=== PATIENT | female | born 1985 | race Caucasian/White ===

== ENCOUNTER 2018-05-27 21:22 | Emergency (ER) | payer MEDICAID, SELFPAY ==
[2018-05-27 21:23] VITALS: BP 115/83; PULSE 95; RESP 16; TEMP 36.8; O2SAT 98; BMI 30.7
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
--- NOTE | 2018-05-27 23:18 | ED.DEP ---
ED Disposition - Plan for ED Patient: Chief Complaint: Back Instructions: ED Contusion Back, ED Contusion Chest Wall Prescriptions: Hydrocodone Bitart/Apap 5-325 [[place] 5MG-325MG] 1 tab PO Q4H PRN PRN 2 Days #10 tab PRN Reason: Pain Naproxen [Naprosyn] 500 mg PO BID PRN #20 tab Referrals: Care Physician,No Primary [Primary Care Provider] - Additional Instructions: See your primary care physician in 5-7 days
--- NOTE | 2018-05-27 23:21 | DCINST.ED_ITS ---
ED Disposition - Plan for ED Patient: Chief Complaint: Back Instructions: ED Contusion Back, ED Contusion Chest Wall Prescriptions: Hydrocodone Bitart/Apap 5-325 [[place] 5MG-325MG] 1 tab PO Q4H PRN PRN 2 Days #10 tab PRN Reason: Pain Naproxen [Naprosyn] 500 mg PO BID PRN #20 tab Referrals: Care Physician,No Primary [Primary Care Provider] - Additional Instructions: See your primary care physician in 5-7 days
[2018-05-27] MEDS: HYDROcodone Bitartrate/Apap 5/325 Tablet PO (23:41)
[2018-05-27 23:45] VITALS: PULSE 86; RESP 16; O2SAT 98
== END 2018-05-27 23:46 | disposition home or self-care (01) ==
LOC: ED 22:35
PROVIDERS: Emergency Provider Emergency Medicine
DX: S20.212A Contusion of left front wall of thorax, initial encounter (principal); S30.0XXA Contusion of lower back and pelvis, initial encounter; Y09 Assault by unspecified means; Y93.9 Activity, unspecified; Y92.9 Unspecified place or not applicable; Z72.0 Tobacco use
CPT/HCPCS: 71101; 72100; 90471; 99284

== ENCOUNTER 2019-06-08 15:28 | Emergency (ER) | payer MEDICAID, SELFPAY ==
[2019-06-08 15:30] VITALS: BP 147/71; PULSE 92; RESP 16; TEMP 36.8; O2SAT 93; BMI 31.1
--- NOTE | 2019-06-08 15:49 | RAD_ITS ---
STUDY: X-RAY - RIGHT FOOT CLINICAL: Female, 34 years old. NEAR FALL, LATERAL FOOT PAIN TECHNIQUE: 3 view(s) of the foot. COMPARISON: None. FINDINGS: Normal talus, calcaneus, and tarsal bones. Normal visualized subtalar, talonavicular, calcaneocuboid, tarsal and tarsometatarsal articulations. Normal metatarsi. Normal visualized joints. No acute fracture is seen. The soft tissue structures are unremarkable. RAD/Foot min 3 Views IMPRESSION: Normal x-ray examination of the foot. Electronically Signed: Maurice Villegas MD at 16:24 EST , Service support ,
[2019-06-08] MEDS: Ibuprofen 600 MG Tablet PO (15:51)
--- NOTE | 2019-06-08 15:53 | ED.VISSUMM ---
- ER Visit Summary Date of Service: 06/08/19 Chief Complaint: Right lower lateral foot pain History of Present Illness: The patient is a 34 F past medical history of depression anxiety and prior . Patient states she is walking today slipped and inverted her right foot complaining of pain on the lateral side of her right small toe metatarsal. No prior history. No prior surgery. She denies any ankle pain or other injuries or discomfort. Physical Examination: Young female no acute distress. Vital signs are stable and afebrile. HEENT exam unremarkable. Neck nontender. Lungs clear to auscultation bilaterally. Heart regular rate and rhythm no murmur. Abdomen soft nontender. Pelvic girdle intact. Both upper extremities left lower extremity unremarkable, nontender, with full range of motion, motor strength and sensation. Right hip and right knee and right ankle are nontender nonswollen with normal range of motion. The right foot lateral metatarsal is tender to palpation. Otherwise foot is neurovascular intact. No deformity. Skin is intact. Able to dorsi plantarflex. Achilles tendon is intact. Normal touch sensation and cap refill of her toes. Test Results: Right foot x-ray 3 views read by myself shows no acute abnormality. No fracture nor dislocation. I did go over the films with the patient. Emergency Department Course and Treatment: Patient most likely has a foot sprain versus a fracture. X-ray is being obtained. Treated with p.o. Motrin. Treatment Plan: Ice and elevate. Increase activity as tolerated. She already has crutches at home. Follow-up with your doctor if not improving or return if worse. Needs to be reevaluated if not improving. Disposition: Discharged Impression: Near [place] with acute right foot sprain This note was generated with [employer] dictation software. It may contain incorrect words, spelling, and punctuation that were not noted in review of the chart prior to signing ED Disposition - Plan for ED Patient: Referrals: Care Physician,No Primary [Primary Care Provider] -
--- NOTE | 2019-06-08 16:17 | ED.DEP ---
ED Disposition - Plan for ED Patient: Disposition: Home or Assisted Living Instructions: Sprain Foot Referrals: Care Physician,No Primary [Primary Care Provider] - 10-14 Days if not better Additional Instructions: Ice and elevate your foot to decrease pain and swelling. Motrin for pain and swelling and Tylenol for pain. Use your crutches that you have at home. Increase weightbearing as tolerated. If this is not improving in 1 to 2 weeks have it reevaluated or potentially even re-x-rayed.
== END 2019-06-08 16:24 | disposition home or self-care (01) ==
PROVIDERS: Emergency Provider Emergency Medicine
DX: S93.601A Unspecified sprain of right foot, initial encounter (principal); W18.40XA Slipping, tripping and stumbling without falling, unspecified, initial encounter; Y93.01 Activity, walking, marching and hiking; Y92.9 Unspecified place or not applicable; F32.9 Major depressive disorder, single episode, unspecified; F41.9 Anxiety disorder, unspecified; Z79.899 Other long term (current) drug therapy
CPT/HCPCS: 73630; 99283

== ENCOUNTER 2021-02-18 12:27 | Emergency (ER) | payer MEDICAID, SELFPAY ==
[2021-02-18 12:29] VITALS: BP 116/85; PULSE 75; RESP 17; TEMP 36.7; O2SAT 96; BMI 31.1
--- NOTE | 2021-02-18 13:22 | EX.ED.DYSGE1 ---
HPI History of Present Illness Chief Complaint: Bite Informant: patient Onset/Context/Timing Onset: Days Narrative Narrative: Patient presents with 2 complaints. She had an insect bite on her left forearm 4 days ago. She is been using hydrocortisone cream on it but states it seems to be more swollen and red. She then developed nausea and abdominal cramping last night. She does not believe it is related to the bite. No fever or chills. No cough. No urinary symptoms. PFSH PFSH Medical History Anxiety Depression Smoker Home Medications acyclovir 400 mg PO DAILY 05/27/18 [History Last Taken Unknown] fluoxetine [Prozac] 20 mg PO DAILY 05/27/18 [History Last Taken Unknown] lorazepam 0.5 mg PO BID PRN 05/27/18 [History Last Taken Unknown] sulfamethoxazole-trimethoprim [Bactrim] 1 tab PO BID #6 tab 02/18/21 [Rx Last Taken Unknown] Allergy/AdvReac Type Severity Reaction Status Date / Time adhesive AdvReac Hives Verified 02/18/21 12:43 benzoyl peroxide AdvReac Rash Verified 02/18/21 12:43 Surgical History Hx of section Social History Smoking Status: Light Smoker (<10/day) ROS ROS ED Constitutional Constitutional ED: Denies chills or fever(s) Eyes Eyes: Denies change in vision ENT ENT ED: Denies sore throat Cardiovascular Cardiovascular: Denies chest pain Respiratory/Chest Respiratory/Chest: Denies cough or dyspnea Gastrointestinal Gastrointestinal: Reports abdominal pain, diarrhea and nausea; Denies vomiting Genitourinary Genitourinary ED: Denies dysuria Musculoskeletal Musculoskeletal: Reports myalgias; Denies back pain Integumentary Reports rash Neurologic Neurologic: Denies headache(s) or weakness Allergic/Immunologic Allergic/Immunologic ED: Denies urticaria EXAM Physical Exam Const Vital Signs: 02/18/21 12:29 02/18/21 14:59 Temperature 98.0 F Temperature Source Temporal Pulse Rate 75 60 Respiratory Rate 17 15 Blood Pressure 116/85 H 102/64 Blood Pressure Mean 95 76 Pulse Ox 96 100 Oxygen Delivery Method Room Air Room Air Positive well nourished and well developed General Appearance ED: well developed HEENT Reports moist mucous membranes Eyes PERRL and EOMs intact bilaterally Neck supple Chest Wall inspection of chest normal and palpation of chest normal Resp normal respiratory effort and clear to auscultation bilaterally Cardio regular rate and regular rhythm GI normal to inspection, nondistended, normoactive bowel sounds and non-tender Palpation: soft Extremity Extremity Narrative: 4 x 2 cm area of erythema to the left volar forearm. No fluctuance. Neuro oriented x3 Sensorium / Orientation: alert Psych mental status grossly normal Skin Skin Narrative: As above MDM MDM MDM Narrative Medical decision making narrative: Lab work and urinalysis obtained. Patient given Toradol and Benadryl. Lab Data Attestation: I reviewed the patient's lab results. Labs: Laboratory Results - last 24 hr 02/18/21 02/18/21 02/18/21 13:20 13:20 13:20 WBC 7.6 RBC 4.57 Hgb 13.9 Hct 42.2 MCV 92.3 MCH 30.4 MCHC 32.9 RDW Std Deviation 40.7 RDW Coeff of Jun 11.9 Plt Count 280 MPV 9.6 Immature Gran % (Auto) 0.300 Neut % (Auto) 62.3 Lymph % (Auto) 27.5 Bland % (Auto) 6.9 Eos % (Auto) 2.1 Baso % (Auto) 0.9 Absolute Neuts (auto) 4.8 Absolute Lymphs (auto) 2.10 Nucleated RBC % 0 Sodium 138 Potassium 4.0 Chloride 105 Carbon Dioxide 26.0 Anion Gap 7 BUN 10 Creatinine 0.85 Estim Creat Clear Calc 73.76 Est GFR (MDRD) Af Amer 99 Est GFR (MDRD) Non-Af 82 BUN/Creatinine Ratio 11.8 Glucose 86 Calcium 8.9 Total Bilirubin 0.30 Direct Bilirubin 0.08 AST 13 L ALT 18 Alkaline Phosphatase 69 Total Protein 7.7 Albumin 3.5 Globulin 4.2 Serum , Qual NEGATIVE Urine Color Urine Clarity Urine pH Ur Specific [place] Urine Protein Urine Glucose (UA) Urine Ketones Urine Occult Blood Urine Nitrite Urine Bilirubin Urine Urobilinogen Ur Leukocyte Esterase Urine RBC Urine WBC Ur Squamous Epith Cells Urine Bacteria Urine Mucus 02/18/21 14:24 WBC RBC Hgb Hct MCV MCH MCHC RDW Std Deviation RDW Coeff of Jun Plt Count MPV Immature Gran % (Auto) Neut % (Auto) Lymph % (Auto) Bland % (Auto) Eos % (Auto) Baso % (Auto) Absolute Neuts (auto) Absolute Lymphs (auto) Nucleated RBC % Sodium Potassium Chloride Carbon Dioxide Anion Gap BUN Creatinine Estim Creat Clear Calc Est GFR (MDRD) Af Amer Est GFR (MDRD) Non-Af BUN/Creatinine Ratio Glucose Calcium Total Bilirubin Direct Bilirubin AST ALT Alkaline Phosphatase Total Protein Albumin Globulin Serum , Qual Urine Color Yellow Urine Clarity Clear Urine pH 7.0 Ur Specific [place] 1.010 Urine Protein Negative Urine Glucose (UA) Normal Urine Ketones Negative Urine Occult Blood 10 H Urine Nitrite Negative Urine Bilirubin Negative Urine Urobilinogen Normal Ur Leukocyte Esterase 500 H Urine RBC 0 SEEN Urine WBC 0-5 SEEN Ur Squamous Epith Cells 0-5 SEEN Urine Bacteria 1+ Urine Mucus 0 SEEN Treatment and Re-Evaluation Comments:: On repeat evaluation patient resting comfortably. Blood work is unremarkable. Urinalysis does show 500 leukocyte esterase with 1+ bacteria. With the patient having nausea and abdominal cramping we will treat her with 3 days of antibiotic. Her rapid Covid test is negative. Patient given follow-up instructions. Discharge Plan Triage Chief Complaint: Bite ED Provider: April Rollins Dx/Rx/DC Orders Clinical Impression: Allergic reaction, UTI (urinary tract infection) Instructions: ED Insect Sting, Local Reaction, ED CYSTITIS Female Adult Prescriptions: New sulfamethoxazole-trimethoprim [Bactrim] 400-80 mg tablet 1 tab PO BID Qty: 6 RF: 0 No Action lorazepam 0.5 tablet 0.5 mg PO BID PRN (Reason: Anxiety) RF: 0 fluoxetine [Prozac] 20 MG capsule 20 mg PO DAILY RF: 0 acyclovir 400 tablet 400 mg PO DAILY RF: 0 Primary Care Provider: Care Physician,No Primary Referrals: Javi Kincaid MD [STAFF PHYSICIAN] - As Needed Care Physician,No Primary [Primary Care Provider] - Disposition Disposition: Home, Self Care
[2021-02-18 13:35] LABS: Absolute Neutrophil Count 4.8 X10^3/uL (2.0-7.7); Basophil# 0.07 X10^3/uL; Basophil% 0.9 % (0-1); Eosinophil# 0.16 X10^3/uL; Eosinophils% 2.1 % (0-5); Hematocrit 42.2 % (37-47); Hemoglobin 13.9 g/dL (12.0-15.0); Lymphocyte % 27.5 % (19-41); Mean Corp Hgb Conc 32.9 g/dL (32-36); Mean Corpuscular Hgb 30.4 pg (27.0-32.0); Mean Corpuscular Volume 92.3 fL (81-99); Mean Platelet Vol. 9.6 fl (6.2-12.0); Monocyte# 0.53 X10^3/uL; Monocyte% 6.9 % (0-10); NRBC Flagged by Analyzer 0 % (0-5); Neutrophil # 4.75 X10^3/uL (2.7-7.7); Neutrophil % 62.3 % (47-70); Platelet Count 280 K/mm3 (150-450); RBC Distribution Width CV 11.9 % (11.6-14.6); RBC Distribution Width SD 40.7 fl (35.1-43.9); Red Blood Count 4.57 M/mm3 (4.2-5.4); White Blood Count 7.6 K/mm3 (4.4-11.0)
[2021-02-18 13:41] LABS: Internal QC Validated? YES +Cl - CLEAR BKGD; Pregnancy, Serum, hCG Quali. NEGATIVE Negative
[2021-02-18 13:49] LABS: AST(SGOT) 13 U/L (15-37); Alanine Aminotransfer ALT/SGPT 18 U/L (13-56); Albumin, Serum 3.5 g/dL (3.2-5.0); Alkaline Phosphatase 69 U/L (45-117); Anion Gap 7 (5-15); BUN 10 mg/dL (7-18); BUN/Creat Ratio 11.8 RATIO (10-20); Bilirubin, Direct 0.08 mg/dL (0.00-0.30); Calcium,Total 8.9 mg/dL (8.5-10.1); Chloride 105 mmol/L (98-107); Creatinine, Serum 0.85 mg/dL (0.55-1.02); EST Glomerular Filtration Rate 82 mL/min (>60); Est Glom Filt Rate - Afr Amer 99 mL/min (>60); Estimated Creatinine Clearance 73.76 ml/min; Globulin 4.2 g/dL (2.2-4.2); Glucose 86 mg/dL (74-106); Protein, Total 7.7 g/dL (6.4-8.2); Sodium Level 138 mmol/L (136-145)
[2021-02-18] MEDS: Ketorolac 30 MG/ML Syringe IV (14:04)
[2021-02-18] MEDS: DiphenhydrAMINE 25 MG Capsule PO (14:05)
[2021-02-18 14:28] LABS: Color, Urine Yellow (Yellow); Glucose, Dipstick Normal (Normal); Ketone-Dipstick Negative (Negative); Leukocyte Esterase-Dipstick 500 /ul (Negative); Mucous, Urine 0 SEEN /hpf (<or=2+); Nitrite-Dipstick Negative (Negative); Occult Blood-Urine 10 /ul (Negative); Protein-Dipstick Negative (Negative); Red Blood Cells-Urine 0 SEEN /hpf (0-5); Urine Bilirubin Dipstick Negative (Negative); Urine Clarity Clear (Clear); Urine Urobilinogen Normal (Normal)
[2021-02-18 14:35] LABS: Bacteria 1+ /hpf (None Seen); Squamous Epithelial Cells - UA 0-5 SEEN /hpf (5-10); White Blood Cells 0-5 SEEN /hpf (0-5)
[2021-02-18 14:59] VITALS: BP 102/64; PULSE 60; RESP 15; O2SAT 100
[2021-02-18 15:55] VITALS: BP 98/75; PULSE 85; RESP 14; O2SAT 98
== END 2021-02-18 16:04 | disposition home or self-care (01) ==
PROVIDERS: Emergency Provider Emergency Medicine
DX: N39.0 Urinary tract infection, site not specified (principal); S50.862A Insect bite (nonvenomous) of left forearm, initial encounter; T78.40XA Allergy, unspecified, initial encounter; W57.XXXA Bitten or stung by nonvenomous insect and other nonvenomous arthropods, initial encounter; Y93.9 Activity, unspecified; F32.A Depression, unspecified; F41.9 Anxiety disorder, unspecified; Z79.899 Other long term (current) drug therapy; F17.200 Nicotine dependence, unspecified, uncomplicated
CPT/HCPCS: 80048; 80076; 81001; 84703; 85025; 87426; 96361; 96374; 99283; J7030; A4216

== ENCOUNTER 2022-05-06 06:59 | Emergency (ER) | payer MEDICAID, SELFPAY ==
[2022-05-06 07:01] VITALS: BP 143/118; PULSE 73; RESP 16; TEMP 36.7; O2SAT 99; BMI 32.0
--- NOTE | 2022-05-06 07:33 | EX.ED.VIS.UR ---
HPI HPI - URI History of Present Illness Chief Complaint: Sore Throat Informant: patient Onset/Context/Timing Onset: Days (3) Context: Gradual Onset Timing: Continuous Quality: Sharp, burning Location: Throat Worsened by: Swallowing Relieved by: Tylenol Associated Symptoms Associated Symptoms: Positive for Headache and Shortness of Breath; Negative for Nasal Congestion, Sinus Pressure, Myalgias, Nausea, Vomiting, Diarrhea, Chest Pain, Nonproductive cough, Hemoptysis or Productive Cough Narrative Narrative: Patient presents with sore throat that has been getting worse over the past 3 days. Patient states it is gradually getting worse. Patient describes her pain as sharp and burning. Patient states it is worse with swallowing. Patient admits to some subjective chills. Patient states she has been taking Tylenol which has been helping with the chills but not with the pain in her throat. Patient states her pain has been constant over the last 3 days. Patient states it is gradually getting worse. Patient states the pain radiates into her ears. Patient admits to some shortness of breath but denies any cough. Patient denies any chest pain. ROS ROS ED Constitutional Constitutional ED: Reports chills and subjective; Denies fever(s) Eyes Eyes: Denies blurry vision or change in vision ENT ENT ED: Reports ear pain bilateral and sore throat; Denies rhinorrhea Cardiovascular Cardiovascular: Denies chest pain or palpitations Respiratory/Chest Respiratory/Chest: Reports dyspnea; Denies cough Gastrointestinal Gastrointestinal: Denies nausea or vomiting Genitourinary Genitourinary ED: Denies dysuria or hematuria Musculoskeletal Musculoskeletal: Reports neck pain; Denies back pain Integumentary Denies abscess or rash Neurologic Neurologic: Reports headache(s); Denies weakness Allergic/Immunologic Allergic/Immunologic ED: Denies mouth swelling or urticaria PFSH PFSH Medical History Anxiety Depression Smoker Home Medications lorazepam 0.5 mg tablet 0.5 mg PO BID PRN Anxiety 05/27/18 [History Last Taken Unknown] Allergy/AdvReac Type Severity Reaction Status Date / Time adhesive AdvReac Hives Verified 02/18/21 12:43 benzoyl peroxide AdvReac Rash Verified 02/18/21 12:43 Surgical History Hx of section Social History Smoking Status: Light Smoker (<10/day) EXAM Physical Exam Const Vital Signs: 05/06/22 07:01 05/06/22 07:08 Temperature 98.1 F Temperature Source Oral Pulse Rate 73 Respiratory Rate 16 Respiratory Pattern Normal Blood Pressure 143/118 H Blood Pressure Mean 126 Pulse Ox 99 Oxygen Delivery Method Room Air Positive well nourished and well developed General Appearance ED: well developed and NAD HEENT Reports moist mucous membranes normocephalic and atraumatic Throat: posterior oropharynx abnormal Positive for erythema Neck supple and no JVD General: lymphadenopathy anterior cervical Resp normal respiratory effort and clear to auscultation bilaterally Cardio regular rate, regular rhythm and no murmurs GI normal to inspection, nondistended, normoactive bowel sounds and non-tender Palpation: soft Extremity normal to inspection General Extremety ED: Negative for edema or tenderness General Extremity: Negative for edema Neuro oriented x3, CN's II-XII intact bilaterally and no sensory deficits noted Sensorium / Orientation: alert Motor Exam: strength 5/5 throughout Psych mental status grossly normal Skin no rashes or lesions noted MDM MDM MDM Narrative Medical decision making narrative: COVID-19 rapid antigen was obtained and was negative. Influenza A and influenza B antigens were obtained and were negative. Rapid strep was obtained and was positive. Patient states she does not feel that she can swallow pills and opted for IM injection of Bicillin LA. Patient was given an injection of 1,200,000 units of Bicillin LA. Patient was instructed to continue Tylenol and ibuprofen as needed for any aches or fevers. Patient was given a dose of ibuprofen here. Patient was instructed to drink plenty of fluids. Patient was instructed to follow-up with her primary care physician in 5 to 7 days. Patient understood and was agreeable with the plan. All questions were answered. Discharge Plan Triage Chief Complaint: Sore Throat ED Provider: Jaime Collado Dx/Rx/DC Orders Clinical Impression: Acute streptococcal pharyngitis, Obesity (BMI 30.0-34.9) Instructions: ED Pharyngitis, Strep (Confirmed) Prescriptions: No Action lorazepam 0.5 tablet 0.5 mg PO BID PRN (Reason: Anxiety) Primary Care Provider: Care Physician,No Primary Referrals: Ching Cruz MD [Med Staff - Filter Press Supervisor] - 5-7 Days Care Physician,No Primary [Primary Care Provider] - Disposition Disposition: Home, Self Care
[2022-05-06] MEDS: Ibuprofen 600 MG Tablet PO (09:01)
[2022-05-06] MEDS: Penicillin G Benzathine 1.2 MU/2 ML Syringe IM (09:02)
== END 2022-05-06 09:16 | disposition home or self-care (01) ==
PROVIDERS: Emergency Provider Emergency Medicine; Visit Provider Emergency Medicine
DX: J02.0 Streptococcal pharyngitis (principal); F17.200 Nicotine dependence, unspecified, uncomplicated; R06.02 Shortness of breath; E66.9 Obesity, unspecified; R51.9 Headache, unspecified
CPT/HCPCS: 87428; 87880; 99283

== ENCOUNTER 2025-03-14 12:30 | Outpatient (CLI) | payer BC, SELFPAY ==
[2025-03-14 12:51] VITALS: PULSE 121; RESP 12; TEMP 36.2; O2SAT 100; O2SAT 96
[2025-03-14 12:52] VITALS: BP 119/78; PULSE 85
[2025-03-14 12:56] VITALS: PULSE 91; O2SAT 97
--- NOTE | 2025-03-14 13:01 | OB.TRI.NOTE ---
HPI - General HPI Narrative LIAT ACEVES, is a 40 F @ 34.1 weeks who presents c/o pressure. she reports she feels like the baby is going to fall out. pt also had back pain. denies VB, lof or regular ctx. PFSH PFSH Medical History Anxiety Depression Smoker Home Medications Medication Instructions Recorded Last Taken Type lorazepam 0.5 mg tablet 0.5 mg PO BID PRN Anxiety 05/27/18 Unknown History Allergy/AdvReac Type Severity Reaction Status Date / Time adhesive AdvReac Hives Verified 02/18/21 12:43 benzoyl peroxide AdvReac Rash Verified 02/18/21 12:43 Surgical History Hx of section Social History Smoking Status: Light Smoker (<10/day) History Elective abortions Hx Para 1 Spontaneous abortions Hx # Term Pregnancies Ectopic pregnancies Hx # Pregnancies Multiple births # of living children Physical Exam Narrative VE: Closed/thick/posterior and -4 Const alert and oriented x3 General Appearance: cooperative HEENT normocephalic GI GI Narrative: Gravid, non tender to palpation. OB / External & Speculum: external exam normal Extremity normal to inspection Skin no rashes or lesions noted Neuro oriented x3 and CN's II-XII intact bilaterally Psych Appearance: grossly normal NST FHR Rate Baby A Baseline: 145 Variability:: Moderate Accelerations:: 15 x 15 Decelerations:: None NST Reactive:: Yes FHR Category:: Category I Uterine Activity:: no ctx Assessment & Plan (1) Abdominal pain affecting : (2) 34 weeks gestation of : (3) Gestational diabetes: (4) Previous delivery affecting : PLAN: Plan G2P 1 @ 34 weeks who presents c/o pain/pressure. 1) Cervical exam- closed- reassurance given 2) will check urine 3) Push PO fluids 4) follow up in office as scheduled this week
[2025-03-14 13:32] LABS: Color, Urine Yellow (Yellow); Glucose, Dipstick 1000 mg/dl (Normal); Ketone-Dipstick 5 mg/dl (Negative); Leukocyte Esterase-Dipstick Negative /ul (Negative); Nitrite-Dipstick Negative (Negative); Occult Blood-Urine 10 /ul (Negative); Protein-Dipstick 30 mg/dl (Negative); Specific Gravity, Urine 1.025 (1.002-1.030); Urine Bilirubin Dipstick Negative (Negative)
[2025-03-14 13:52] VITALS: BMI 42.4
== END 2025-03-14 14:40 | disposition home or self-care (01) ==
LOC: WPOUT 12:41 → WP 12:44
PROVIDERS: Referring Provider Obstetrics & Gynecology; Visit Provider Obstetrics & Gynecology
DX: O99.891 Other specified diseases and conditions complicating pregnancy (principal); O99.343 Other mental disorders complicating pregnancy, third trimester; F41.9 Anxiety disorder, unspecified; Z3A.34 34 weeks gestation of pregnancy; Z79.899 Other long term (current) drug therapy; O99.333 Smoking (tobacco) complicating pregnancy, third trimester; F17.200 Nicotine dependence, unspecified, uncomplicated; R10.9 Unspecified abdominal pain; O24.419 Gestational diabetes mellitus in pregnancy, unspecified control
CPT/HCPCS: 59025; 59050; 81002; 99221; G0378

== ENCOUNTER 2025-04-07 09:25 | Inpatient (IN) | payer BC, SELFPAY ==
--- NOTE | 2025-04-04 17:05 | PCM.HP.BLA ---
History and Physical Date of Admission: 04/07/25 Expand All Collapse All Pre-Op History and Physical HPI: The patient is a 40 year old female presenting for pre-operative visit. She is scheduled for and bilateral salpingectomy, for uncontrolled GDMA2, obesity @ 37+ weeks on 04/07/25. Procedure discussed along with risks, benefits and complications. Other alternatives discussed for management. Consent form signed? Yes. PAST MEDICAL HISTORY PAST MEDICAL HISTORY Diagnosis Date ? Depression ? HSV-2 (herpes simplex virus 2) infection 03/23/2018 primary genital outbreak ? HSV-2 (herpes simplex virus 2) infection 03/23/2018 primary genital outbreak ? Hypercholesteremia ? Suicide attempt (HCC) 05/2012 overdose on Flexeril PAST SURGICAL HISTORY PAST SURGICAL HISTORY Procedure Laterality Date ? DELIVERY ONLY 04/05/13 , low transverse CURRENT MEDICATIONS Current Outpatient Medications Medication Sig Dispense Refill ? insulin NPH (HUMULIN N NPH U-100 INSULIN) suspension Inject 34 Units subcutaneously as directed. 24 units at bedtime and 10 units with breakfast 3 mL 3 ? insulin syringe-needle U-100 0.3 mL 31 gauge x 1/4 syrg 1 box once daily. 1 each 0 ? blood sugar diagnostic test strip Use as directed to check glucose levels up to seven times daily. 200 strip 8 ? Lancets Use as directed to check glucose levels up to seven times daily. 200 each 8 ? alcohol swabs (ALCOHOL PREP PADS) Use as directed to check glucose levels up to seven times daily. 200 each 8 ? multivitamin ( VITAMIN WITH MINERALS) 28 mg iron- 800 mcg tab Take 1 tablet by mouth once daily. No current facility-administered medications for this visit. ALLERGIES: Benzoyl Peroxide and Latex PERSONAL HISTORY: [SOCIAL HISTORY] [SOCIAL HISTORY] Social History Tobacco Use ? Smoking status: Former Current packs/day: 0.00 Types: Cigarettes Start date: 08/14/2008 Quit date: 08/14/2012 Years since quittin.6 ? Smokeless tobacco: Never Vaping Use ? Vaping status: Never Used Substance Use Topics ? Alcohol use: No ? Drug use: No FAMILY HISTORY: FAMILY HISTORY FAMILY HISTORY Problem Relation Age of Onset ? Diabetes Mother ? Heart Mother 53 ? Kidney failure Mother ? GI Father Chron's Disease ? Diabetes Father ? other (spine disease) Brother ? Diabetes Maternal Grandmother ? Stroke Maternal Grandmother ? Diabetes Maternal Grandfather ? Diabetes Paternal Grandmother ? Prostate Cancer Paternal Grandfather ? Diabetes Paternal Grandfather ? Breast Cancer Maternal Aunt Maternal great aunts, 4 of them REVIEW OF SYMPTOMS: negative except as noted above PHYSICAL EXAMINATION: VITALS: Blood pressure 124/76, weight 106.6 kg (235 lb), last menstrual period 07/31/2024. GENERAL: The patient is well nourished, well hydrated in no acute distress. , The patient is oriented to time, place, and person. NECK: full range of motion ABD: gravid, non tender IMPRESSION: @ 37.1 weeks with GDMA2 and obesity , desires sterilization PLAN: @ 37+ weeks for repeat cs and salpingectomy Pt has been counseled on risks/benefits and alternatives of surgery including but not limited to anesthesia, bleeding, infection, injury to pelvic structures including bowel, bladder, ureters and vessels. Pt wishes to proceed with surgery at this time. Early term delivery reviewed - risks/ benefits . I have reviewed and updated past medical and surgical history, medications and allergies Fernanda Alvarez MD
[2025-04-07] VITALS (44 sets, daily range): BP systolic 100–142; BP diastolic 60–101; PULSE 62–90; RESP 12–22; TEMP 36.1–36.9; O2SAT 96–99; BMI 42.8
[2025-04-07] MEDS: Lactated Ringers 1,000 ML 999 ML IV (10:12)
[2025-04-07 10:26] LABS: Hematocrit 35.7 % (37-47); Hemoglobin 11.8 g/dL (12.0-15.0); Immature Granulocytes Count 0.080 X10^3/uL (0.0-0.0); Mean Corp Hgb Conc 33.1 g/dL (32-36); Mean Corpuscular Volume 87.3 fL (81-99); Mean Platelet Vol. 11.8 fl (6.2-12.0); NRBC Flagged by Analyzer 0 % (0-5); Platelet Count 213 K/mm3 (150-450); RBC Distribution Width CV 13.1 % (11.6-14.6); RBC Distribution Width SD 40.9 fl (35.1-43.9); Red Blood Count 4.09 M/mm3 (4.2-5.4); White Blood Count 8.9 K/mm3 (4.4-11.0)
[2025-04-07] MEDS: Lactated Ringers 1,000 ML 150 ML IV (11:00)
[2025-04-07 11:07] LABS: Syphilis Antibodies Nonreactive (Nonreactive)
[2025-04-07] MEDS: morphine PF (epidural) 5 MG/10 ML Vial EPIDURAL (12:18)
[2025-04-07] MEDS: Cefazolin 1 GM/5 ML Vial 3 GM IV (12:21)
--- NOTE | 2025-04-07 13:00 | OP.PCM_ITS ---
Maternal Data Information Final SCOOBY Source: <20 weeks Gestational age: 37 weeks Operative Report (OB) Procedure Details Date of Procedure: 04/07/25 Procedure Start Time: : Procedure Stop Time: 13:10 Time of Delivery: 12:31 Pre-Operative Diagnosis: Repeat Elective and Desires elective sterilization Post-Operative Diagnosis: Same as Pre-operative diagnosis (Obesity in , poorly controlled GDMA2, HSV, ) Classification: Scheduled Type of Anesthesia: Spinal Antibiotic Given: Ancef 3 grams IV x1 Drain: [place] to straight drain Estimated Blood Loss: 600 Findings Description of surgery: After informed consent was obtained the patient was taken the operating room she was given spinal anesthesia. She was then placed in the supine position. She was prepped and draped in the normal sterile fashion. Anesthesia was found to be adequate. At this time a Pfannenstiel skin incision was made with a knife was carried down to the underlying layer of the fascia. The fascial incision was then extended laterally using lopez scissor. Attention was then turned to the superior aspect of the fascial edge was grasped with 2 straight [place] clamps tented up and the rectus muscle dissected off sharply. Rectus muscles were then in the midline bluntly and peritoneum was entered bluntly. Gentle opposing traction was placed. Demario O placed for retraction- At this time the vesicouterine peritoneum was identified. Scalpel was used to make a uterine incision in a low transverse fashion. The uterus was then entered bluntly gentle opposing traction was placed to extend this incision. Membranes were ruptured clear. 's head was brought to the uterine incision was delivered atraumatically. Nuchal x 1 loose noted and reduced. was vigorous at delivery and delayed cord clamping performed. Cord was clamped and cut was handed to the waiting nursery team. The Placenta was removed from the uterus. The uterus remained in the intra-abdominal cavity. The uterus was cleared of all clots and debris using a lap. At this time the uterine incision was reapproximated using #1 Vicryl in a running locked fashion. Hemostasis was appreciated. Posterior cul-de-sac was then cleared of all clots and debris. At this time the right tube was grasped in an avascular area. The right tube had to be taken on sections due to adhesions to the ovary. Left tube was grasped with Babcocks and removed in 1 section. Excellent hemostasis from both pedicles were noted. Gutters were cleared of all clots and debris. Pedicles and uterine incision were again evaluated good hemostasis. At this time the Demario O was removed. At this time the peritoneum was grasped with Kellys reapproximated using #2 Vicryl suture in a running fashion. Fascia was then reapproximated using #1 PDS in a running fashion. Subcu layer was irrigated with NS, reapproximated with #2 0 plain gut suture in an interrupted fashion. Subcu layer was closed using 4-0 Monocryl/Viryl in a subcu fashion. Dry sterile dressing was applied. Instrument lap needle count correct ?2. Anticipated nor mal postoperative course. Surgical findings: Normal ovaries bilaterally Presentation: Vertex Amniotic Membrane Rupture Type: Artificial Amniotic Fluid Description: Clear Placental Delivery Description: Expressed Placenta Disposition: [facility] Specimen collected: Yes Description of specimen(s) removed: Bilateral fallopian tubes Cord Vessel Description: 3 Vessels Cord Entanglement: Around neck x 1, loose Nuchal Cord Compression: Without compression Infant A gender: Female (1 minute): 9 (5 minute): 9 Delayed Cord Clamping: Yes Tape Keller Operator cooperative education coordinator: Yes Car Repairer: Sivakumar Botello Tasks completed by registered nurse first assistant: Opening & closing, Altering tissue and Retracting Additional executive assistant to president?: Yes Additional Head And Neck Surgeon #2: diana pelletier ms Tasks completed by executive assistant to president #2: Retracting Additional executive assistant to president?: No Complications Complications: No
[2025-04-07] MEDS: Oxytocin 15 Units/NS 250ml 15 UNITS/250 ML IV.SOLN 83 UNITS IV (13:30)
[2025-04-07] MEDS: Ketorolac 30 MG/ML Syringe IV ×2 (13:46→19:57)
--- NOTE | 2025-04-07 14:15 | FALS_PTH ---
PATIENT: LIAT ACEVES LOC: [facility] U#:[id number] AGE/SX: 40/F ROOM: [facility] RE04/07/[address]: Dr. Fernanda Garrido, MDDOB: 1985 BED: 1 DIS: 04/09/2025 SPEC #: [id number] RECD: 04/07/25 15:13 STATUS: PETRA LANDY #: [id number] BRENDA: 04/07/25 14:[address]: Fernanda Garrido DEPT: SURGICAL PATHOLOGY RECD BY: Nicholas Han ENTERED: 04/08/25 10:04 SP TYPE: FALL TUBES OTHR DR: Paulina Primary Care Phys Tissues: A - Fallopian tube Procedures: Surgery Specimen Level II HEADER OPERATION: Tubal ligation PRE-OP DIAGNOSIS: Sterilization TISSUE SUBMITTED: A- Bilateral fallopian tubes MICROSCOPIC DIAGNOSIS A. Fallopian tubes, bilateral salpingectomies: * Benign fallopian tubes with complete cross sections obtained MICROSCOPIC DESCRIPTION Slides are reviewed. GROSS DESCRIPTION A. Received fresh and subsequently placed in formalin labeled with the patient's name and date of . Designated as LT with stitch are 2 purple-red fallopian tubes with a suture designated as left the right fallopian tube is received in 2 pieces. The tubes measure 5.3 x 0.7 cm (left) and 3.1 x 0.9 cm (right). Few paratubal cysts are identified, measuring up to 0.3 cm. Sections are submitted in 2 cassettes as follows: A1: Left fallopian tubeA2: Right fallopian tube HI 04/08/2025PT:[id number]
[2025-04-07] MEDS: Lactated Ringers 1,000 ML 100 ML IV (16:06)
--- NOTE | 2025-04-07 19:24 | NURSING ---
1830 this nurse tried to convince pt to get up out of bed at this time- pt states that she feels like her legs are still to numb and shakey and she feels like she will fall-
[2025-04-07] MEDS: 0.9% Saline Lock 10 ML Syringe IV (19:57)
[2025-04-08] VITALS (8 sets, daily range): BP systolic 99–127; BP diastolic 55–85; PULSE 68–94; RESP 16–18; TEMP 36.1–36.8; O2SAT 97–100
[2025-04-08] MEDS: Ketorolac 30 MG/ML Syringe IV ×2 (02:11→08:14)
[2025-04-08] MEDS: 0.9% Saline Lock 10 ML Syringe IV ×3 (02:12→14:13)
[2025-04-08] MEDS: SELF ADMINISTRATION OF MEDS 1 EACH NOTE ×2 (02:14→13:15)
[2025-04-08] MEDS: Lactated Ringers 1,000 ML 100 ML IV (02:17)
[2025-04-08 06:23] LABS: Hematocrit 28.6 % (37-47); Hemoglobin 9.5 g/dL (12.0-15.0); Mean Corp Hgb Conc 33.2 g/dL (32-36); Mean Corpuscular Volume 87.5 fL (81-99); Mean Platelet Vol. 11.6 fl (6.2-12.0); Platelet Count 185 K/mm3 (150-450); RBC Distribution Width CV 13.2 % (11.6-14.6); RBC Distribution Width SD 41.6 fl (35.1-43.9); Red Blood Count 3.27 M/mm3 (4.2-5.4); White Blood Count 8.7 K/mm3 (4.4-11.0)
--- NOTE | 2025-04-08 08:33 | PCM.PN.CNM ---
Subjective Subjective Patient seen at bedside. Denies headache, vision changes, SOB or CP. Ambulating without difficulty. Has not voided since removal of ha catheter earlier this morning. Objective Data Objective Data Vital Signs: Vital Signs Temp Pulse Resp BP Pulse Ox O2 Del Method 97.9 F 68 16 108/69 97 Room Air 04/08/25 04:07 04/08/25 04:38 04/08/25 04:07 04/08/25 04:07 04/08/25 04:38 04/08/25 04:38 Oxygen Delivery Method Room Air Weight: 234 lb 2.095 oz Body Mass Index (BMI) 42.8 Intake & Output: Intake and Output for Last 24 Hours 04/06/25 04/07/25 04/08/25 23:59 23:59 23:59 Intake Total 1370 / 1370 1000 / 1000 Output Total 700 / 700 400 / 400 Balance 670 / 670 600 / 600 Lab / Micro Data Attestation: I reviewed the patient's lab results. 04/08/25 06:02 Labs: Laboratory Results - last 24 hr 04/07/25 10:10: WBC 8.9, RBC 4.09 L, Hgb 11.8 L, Hct 35.7 L, MCV 87.3, MCH 28.9, MCHC 33.1, RDW Std Deviation 40.9, RDW Coeff of Jun 13.1, Plt Count 213, MPV 11.8, Immature Gran % (Auto) 0.900, Neut % (Auto) 67.9, Lymph % (Auto) 21.2, [place] % (Auto) 8.6, Eos % (Auto) 1.0, Baso % (Auto) 0.4, Absolute Neuts (auto) 6.1, Absolute Lymphs (auto) 1.89, Nucleated RBC % 0, Syphilis Total Ab Nonreactive, Blood Type O POSITIVE, Antibody Screen NEGATIVE 04/07/25 10:49: POC Glucose 125 H 04/07/25 13:52: POC Glucose 134 H 04/08/25 06:02: WBC 8.7, RBC 3.27 L, Hgb 9.5 L, Hct 28.6 L, MCV 87.5, MCH 29.1, MCHC 33.2, RDW Std Deviation 41.6, RDW Coeff of Jun 13.2, Plt Count 185, MPV 11.6 04/08/25 06:03: POC Glucose 97 ROS Eyes Eyes: Denies blurry vision, spots in vision or tunnel vision ENT HEENT: Denies dizziness or headache(s) Cardiovascular Cardiovascular: Reports systems reviewed and no addt'l complaints, except as documented, dizziness and dyspnea Respiratory/Chest Respiratory/Chest: Reports systems reviewed and no addt'l complaints, except as documented Gastrointestinal Gastrointestinal: Reports systems reviewed and no addt'l complaints, except as documented Genitourinary Genitourinary: Reports systems reviewed and no addt'l complaints, except as documented Neurologic Neurologic: Denies abnormal speech, dizziness, headache(s), syncope or vertigo Psychiatric Psychiatric: Reports systems reviewed and no addt'l complaints, except as documented Physical Exam Const alert and no apparent distress General Appearance: cooperative Orientation / Consciousness: awake, oriented to person and oriented to place Exam Limitations: no limitations HEENT normocephalic Eyes General Eye: normal appearance of both eyes Neck full ROM Chest Chest: symmetrical chest wall rise Resp normal respiratory effort, normal air movement and clear to auscultation bilaterally Auscultation: clear to auscultation bilaterally Cardio regular rate and regular rhythm GI normal to inspection, nondistended, normoactive bowel sounds Uterus Palpation: uterus fundus firm Extremity full ROM and no calf tenderness Skin no rashes or lesions noted Neuro oriented x3 Psych mental status grossly normal and activity/motor behavior normal Assessment & Plan (1) Status post delivery: (2) Care and examination of lactating mother: (3) Obesity: (4) Anxiety: (5) Depression: PLAN: Plan POD 1 C/S Pain control Desires shower Has not voided since removal of ha catheter- continue to monitor and straight cath as needed
[2025-04-08] MEDS: Senna/Docusate Sodium 1 Tablet PO (11:22)
[2025-04-09 01:52] VITALS: BP 121/77; PULSE 76; RESP 16; TEMP 36.4
--- NOTE | 2025-04-09 07:23 | PCM.DC.SUM ---
Providers Date of Admission: 04/07/25 Primary Care Physician: No Primary Care Phys Reason For Visit: C SECTION Diagnosis Discharge Diagnosis (1) Status post delivery: Status: Acute Code(s): Z98.891 - History of uterine scar from previous surgery (2) Care and examination of lactating mother: Status: Acute Code(s): Z39.1 - Encounter for care and examination of lactating mother (3) Obesity: Status: Acute Code(s): E66.9 - Obesity, unspecified (4) Anxiety: Status: Acute Code(s): F41.9 - Anxiety disorder, unspecified (5) Depression: Status: Acute Code(s): F32.A - Depression, unspecified Plan POD 1 C/S Pain control Desires shower Has not voided since removal of ha catheter- continue to monitor and straight cath as needed Medications at Discharge Home Medications vitamins-iron fumarate 65 mg iron-folic acid 1 mg tablet (Mynatal Plus) 1 tab PO DAILY 04/07/25 acetaminophen 500 mg tablet 1,000 mg (2 x 500 mg) PO Q6 #0 tabs 04/09/25 ibuprofen 600 mg tablet 600 mg PO Q6 #0 tabs 04/09/25 oxycodone 5 mg tablet 5 - 10 mg (1 - 2 x 5 mg) PO Q4H PRN PRN Pain Score 4-10 3 days #14 tabs 04/09/25 sennosides 8.6 mg-docusate sodium 50 mg tablet (Stimulant Laxative Plus) 1 - 2 tab PO DAILY #0 tabs 04/09/25 Hospital Course Operations section Procedures None Summary of Care Provided Minutes Spent on Discharge: 15 Hospital Course: Patient had section. Hospital course was uneventful. Physical Exam Narrative Dressing is dry and intact Const alert and no apparent distress General Appearance: cooperative and comfortable Exam Limitations: no limitations HEENT normocephalic Eyes General Eye: normal appearance of both eyes Neck full ROM General: normal visual inspection Chest Chest: symmetrical chest wall rise Resp normal respiratory effort and normal air movement Effort and Inspection: symmetric chest movement Auscultation: clear to auscultation bilaterally Cardio regular rate and regular rhythm GI normal to inspection, nondistended, normoactive bowel sounds Back/Spine normal ROM Extremity full ROM and no calf tenderness General Extremity: normal exam except as noted Skin no rashes or lesions noted Wound Narrative: Dressing is dry and intact. Neuro CN's II-XII intact bilaterally Psych mental status grossly normal Weight / BMI Weight Weight: 234 lb 2.095 oz Body Mass Index (BMI) 42.8 PRE- weight 200 lb PRE- Body Mass Index 36.6 (BMI) ABG / Lab / Microbiology Data 04/08/25 06:02 D/C Instructions Discharge Activity: May Drive (2 weeks) and May Shower May resume sexual activity in: 6-8 weeks Weight Bearing Status: Weight bearing as tolerated Lifting Restricted to (Lbs): 25 Call your doctor if your incision/area has: Continuous Slow Oozing, Sudden Increased Bleeding, Increased Pain/ Swelling, Increased Redness, Foul Smelling Discharge and Swelling at the incision site Call your doctor if you observe: Fever of 101 or Higher, Numbness or Tingling, Using more than 1 pad per hour, Shortness of breath, Dizziness, Swelling in the ankles, Chest pain, Calf discomfort and Uncontrolled pain Suture Line Care: Avoid Pulling/Pushing Remove Dressing in: 5 days (Remove yourself or call office and schedule appointment for dressing removal.) DC O2, CPAP, BIPAP Needs Home O2 Discharge instructions: No When: 5 days for dressing removal or 2 weeks for post appointment. Meaningful Use Info Meaningful Use Meaningful Use Diagnoses (Choose all that apply): None applicable Discharge Plan Admission Admit Date/Time: 04/07/25 09:25 Primary Reason for Your Visit: Delivery Attending Provider: Fernanda Garrido Primary Care Provider: Care Physician,Paulina Primary Discharge Orders/Prescriptions Prescriptions: New sennosides-docusate sodium [Stimulant Laxative Plus] 8.6-50 mg Tablet 1 - 2 tab PO DAILY Qty: 0 0RF acetaminophen 500 mg Tablet 1,000 mg PO Q6 Qty: 0 0RF ibuprofen 600 mg Tablet 600 mg PO Q6 Qty: 0 0RF oxycodone 5 mg Tablet 5 - 10 mg PO Q4H PRN PRN (Reason: Pain Score 4-10) 3 Days Qty: 14 0RF Discontinued Humulin N NPH U-100 Insulin 100 unit/mL suspension 24 unit subcut .bedtime Humulin N NPH Insulin KwikPen 100 unit/mL (3 mL) insulin pen 10 unit subcut .AM No Action Mynatal Plus 65 mg iron- 1 mg tablet 1 tab PO DAILY Referrals / Follow Up: Care Physician,No Primary [Primary Care Provider, Medical] Disposition Disposition (needs filled in before D/C Order can be placed): Home, Self Care
[2025-04-09 09:00] VITALS: BP 126/73; PULSE 84; RESP 14; TEMP 36.6; O2SAT 98
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
[2025-04-09] MEDS: Senna/Docusate Sodium 1 Tablet PO (12:00)
[2025-04-09 12:06] VITALS: BP 118/80; PULSE 97; RESP 16; TEMP 36.7; O2SAT 98
[2025-04-09 16:00] VITALS: BP 133/79; PULSE 74; RESP 16; TEMP 36.4; O2SAT 98
[2025-04-12 11:20] LABS: Pathology Specimen OB SEE PATHOLOGY REPORT
== END 2025-04-09 18:45 | disposition home or self-care (01) | DRG 785 ==
PROVIDERS: Obstetrics & Gynecology; Admitting Provider Obstetrics & Gynecology; Referring Provider Obstetrics & Gynecology; Visit Provider Obstetrics & Gynecology
PROC: 10D00Z1 Extraction of Products of Conception, Low, Open Approach (ICD-10-PCS; CPT 59514; principal; 2025-04-07 11:45)
DX: O34.211 Maternal care for low transverse scar from previous cesarean delivery (principal); F32.A Depression, unspecified; O24.424 Gestational diabetes mellitus in childbirth, insulin controlled; O99.214 Obesity complicating childbirth; F41.9 Anxiety disorder, unspecified; O99.344 Other mental disorders complicating childbirth; O69.81X0 Labor and delivery complicated by cord around neck, without compression, not applicable or unspecified; O99.892 Other specified diseases and conditions complicating childbirth; N73.6 Female pelvic peritoneal adhesions (postinfective); Z37.0 Single live birth; Z3A.37 37 weeks gestation of pregnancy; Z87.891 Personal history of nicotine dependence; Z30.2 Encounter for sterilization
CPT/HCPCS: 59050; 82962; 85025; 85027; 86780; 86850; 86900; 86901; 88302; 99221; A4216; G0378; J2405